=== PATIENT | male | born 1980 | race Caucasian/White ===

== ENCOUNTER 2025-01-24 12:57 | Emergency (ER) | payer MEDICAID, SELFPAY ==
[2025-01-24] VITALS (11 sets, daily range): BP systolic 155–210; BP diastolic 96–106; PULSE 90–146; TEMP 36.8; O2SAT 98–100; BMI 23.0
--- NOTE | 2025-01-24 13:14 | ECG_ITS ---
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 Measurements Intervals Wilbur Rate: 142 P: 210 WV: 160 QRS: 2 QRSD: 112 T: 57 QT: 340 QTc: 422 Interpretive Statements Sinus tachycardia 2440 Incomplete right bundle branch block Borderline ECG No previous ECG available for comparison Electronically Signed On 01-24-2025 19:26:31 EDT by SALVADOR GRACIA M.D.
--- NOTE | 2025-01-24 13:15 | ED.GENADUL1 ---
HPI HPI - General Adult General Chief complaint: Chest Pain Stated complaint: CHEST PAIN Time Seen by Provider: 01/24/25 13:10 Source: patient Mode of arrival: walk-in Limitations: no limitations History of Present Illness HPI narrative: 44-year-old male presents to the emergency department for chest pain. It started in his throat an hour before coming in to the emergency department while he was smoking a cigarette, and states it lasted for about 10 seconds. It spread down the middle part of his chest and he is worried he is having a heart attack. He has no known medical history at all. He feels like his heart was racing. No history of trauma or fever or unusual activity. No back pain or vomiting. Related Data Home Medications ?Medication ?Instructions ?Recorded ?Confirmed No Known Home Medications 01/24/25 01/24/25 Allergies Allergy/AdvReac Type Severity Reaction Status Date / Time No Known Drug Allergies Allergy Verified 01/24/25 13:06 Opioid HPI Opioid Management Most Recent Opioid Data: Last Pain Scale 5 01/24/25 13:26 01/24/25 Review of Systems ROS Narrative A ten point review of systems is negative except as noted above. [facility] Medical History (Updated 01/24/25 @ 14:58 by Joseph Gallegos MD) No pertinent past medical history ?Z78.9 - Other specified health status (ICD-10) Surgical History (Updated 01/24/25 @ 13:21 by Chris Smith) No pertinent past surgical history ?Z78.9 - Other specified health status (ICD-10) Social History Little interest or pleasure in doing things: not at all Feeling down, depressed, or hopeless: not at all Exam Narrative Exam Narrative: Nurses note and vital signs reviewed and patient is not hypoxic. General: The patient appears in no acute respiratory distress. He appears anxious Skin: Warm, dry, no pallor noted. There is no rash noted. Head: Normocephalic, atraumatic Eye: Normal conjunctiva, no drainage Ears, Nose, Mouth, and Throat: oral mucosa is moist. Nares patent. Cardiovascular: Regular Rate and Rhythm, tachycardic Respiratory: Patient is in no distress, no accessory muscle use, lungs are clear to auscultation, no wheezing, rales or rhonchi; breath sounds equal Back: non-tender GI: Soft and nontender Musculoskeletal: The patient has no evidence of calf tenderness, no pitting edema, symmetrical pulses noted bilaterally Neurological: A&O x4, normal speech Psychiatric: Cooperative, anxious Constitutional Vital Signs, click to edit/add: Last Vital Signs Temp 98.2 F 01/24/25 13:06 Pulse 90 01/24/25 14:30 Resp 15 01/24/25 14:30 BP 167/97 H 01/24/25 14:01 Pulse Ox 99 01/24/25 14:00 O2 Del Method Room Air 01/24/25 13:20 Course Vital Signs Vital signs: Vital Signs Pulse Oximetry 98 01/24/25 13:02 Temperature 98.2 F 01/24/25 13:06 Pulse Rate 90 01/24/25 14:30 Respiratory Rate 15 01/24/25 14:30 Blood Pressure 167/97 H 01/24/25 14:01 Pulse Oximetry 99 01/24/25 14:00 Oxygen Delivery Method Room Air 01/24/25 13:20 Medical Decision Making MDM Narrative Medical decision making narrative: His workup here is negative including 2 sets of troponin and a D-dimer. The rest of his workup as well is negative and he has had no recurrence of his symptoms. The patient tells me it lasted for about 10 seconds. He is able to be discharged home and will follow-up with his doctor if symptoms recur. Treatment diagnosis and follow-up were discussed with the patient. Differential Diagnosis Differential Diagnosis: Myocardial infarction, pneumothorax, pneumonia, PE Lab Data Lab results reviewed: Yes I reviewed the patient's lab results Labs: Lab Results 01/24/25 01/24/25 Range/Units 13:18 14:23 WBC 10.4 (4.0-11.0) 10^3/uL RBC 4.74 (4.70-6.10) 10^6/uL Hgb 15.3 (14.0-18.0) g/dL Hct 42.8 (42.0-54.0) % MCV 90.3 (80.0-94.0) fL MCH 32.3 (25.9-34.0) pg MCHC 35.7 H (29.9-35.2) g/dL RDW 13.0 (11.0-15.0) % Plt Count 256 (150-450) 10^3/uL MPV 9.5 (9.5-13.5) fL Neut % (Auto) 59.0 (43.0-75.0) % Lymph % (Auto) 30.7 (20.5-60.0) % [place] % (Auto) 8.7 (1.7-12.0) % Eos % (Auto) 0.8 L (0.9-7.0) % Baso % (Auto) 0.5 (0.2-2.0) % Neut # (Auto) 6.1 (1.4-6.5) 10^3/uL Lymph # (Auto) 3.2 (1.2-3.8) 10^3/uL [place] # (Auto) 0.9 H (0.3-0.8) 10^3/uL Eos # (Auto) 0.1 (0.0-0.7) 10^3/uL Baso # (Auto) 0.1 (0.0-0.1) 10^3/uL Abs Immat Gran (auto) 0.03 (0.00-0.03) 10^3/uL Imm/Tot Granulo (auto) 0.3 (0.0-0.5) % D-Dimer 0.27 (<=0.59) mg/L FEU Sodium 138 (136-145) mmol/L Potassium 3.7 (3.5-5.1) mmol/L Chloride 100 (98-107) mmol/L Carbon Dioxide 28.5 (21.0-32.0) mmol/L Anion Gap 13.2 BUN 26.0 H (7.0-18.0) mg/dL Creatinine 1.03 (0.70-1.30) mg/dL Est GFR ( Amer) >60 (>=60 mL/min/1.73m^2) Est GFR (Non-Af Amer) >60 (>=60 mL/min/1.73m^2) BUN/Creatinine Ratio 25.2 Glucose 210 H (74-106) mg/dL Calcium 8.7 (8.5-10.1) mg/dL Troponin I High Sens 21.6 22.2 (4.0-76.1) pg/mL Imaging Data Chest x-ray: Radiologist's impression: No consolidation, no pulmonary edema, pleural effusion or pneumothorax ECG Data Attestation: I personally reviewed and interpreted this ECG as follows: (EKG on my interpretation shows sinus tachycardia with a rate of 142) Discharge Plan Discharge Chief Complaint: Chest Pain Clinical Impression: Chest pain Patient Disposition: Home, Self-Care Time of Disposition Decision: 14:58 Condition: Good Mode of Transportation: Private Vehicle Prescriptions / Home Meds: No Action No Known Home Medications Print Language: Arabic Instructions: Chest Pain (ED) Referrals: Physician,Non-Staff, MD [Primary Care Provider] - 1 week
[2025-01-24 13:36] LABS: Basophils Absolute Auto 0.1 10^3/uL (0.0-0.1); Basophils Percent Auto 0.5 % (0.2-2.0); Eosinophils Absolute Auto 0.1 10^3/uL (0.0-0.7); Eosinophils Percent Auto 0.8 % (0.9-7.0); Hematocrit 42.8 % (42.0-54.0); Hemoglobin 15.3 g/dL (14.0-18.0); Immature Granulocytes Abs Auto 0.03 10^3/uL (0.00-0.03); Immature Granulocytes Pct Auto 0.3 % (0.0-0.5); Lymphocytes Absolute Auto 3.2 10^3/uL (1.2-3.8); Lymphocytes Percent Auto 30.7 % (20.5-60.0); Mean Corpuscular HGB Conc 35.7 g/dL (29.9-35.2); Mean Corpuscular Hemoglobin 32.3 pg (25.9-34.0); Mean Corpuscular Volume 90.3 fL (80.0-94.0); Mean Platelet Volume 9.5 fL (9.5-13.5); Monocytes Absolute Auto 0.9 10^3/uL (0.3-0.8); Monocytes Percent Auto 8.7 % (1.7-12.0); Neutrophils Absolute Auto 6.1 10^3/uL (1.4-6.5); Platelet Count 256 10^3/uL (150-450); Red Blood Count 4.74 10^6/uL (4.70-6.10); White Blood Count 10.4 10^3/uL (4.0-11.0)
[2025-01-24 13:44] LABS: D Dimer 0.27 mg/L FEU (<=0.59)
[2025-01-24 13:49] LABS: Anion Gap 13.2; BUN Creatinine Ratio 25.2; Calcium 8.7 mg/dL (8.5-10.1); Carbon Dioxide 28.5 mmol/L (21.0-32.0); Chloride 100 mmol/L (98-107); Estimated GFR (African America >60 (>=60 mL/min/1.73m^2); Estimated GFR (Non-African Ame >60 (>=60 mL/min/1.73m^2); Glucose 210 mg/dL (74-106); Potassium 3.7 mmol/L (3.5-5.1); Sodium 138 mmol/L (136-145); Troponin I High Sensitivity 21.6 pg/mL (4.0-76.1)
[2025-01-24 14:48] LABS: Troponin I High Sensitivity 22.2 pg/mL (4.0-76.1)
== END 2025-01-24 15:11 | disposition home or self-care (01) ==
PROVIDERS: Emergency Provider Emergency Medicine
DX: R07.9 Chest pain, unspecified (principal); F17.210 Nicotine dependence, cigarettes, uncomplicated
CPT/HCPCS: 36415; 71045; 80048; 80307; 81001; 84484; 85025; 85378; 93005; 99285

== ENCOUNTER 2025-06-19 15:06 | Outpatient (OUT) | payer MEDICAID, SELFPAY ==
--- OUTSIDE RECORDS SUMMARY | 2025-06-19 15:13 | XMS_ITS | Encounter Summary ---
Author Organization [facility] Address [id number] [address] [place] [address] Care Team Providers Care Wardrobe Consultant Name Role Phone No Pcp, No Pcp Primary Care Provider Unavailabl e Encounter Details Date Type Department Care Team (Latest Contact Info) Description 06/19/2025 Travel Social History Tobacco Use Types Packs/Day Years Used Date Smoking Tobacco: Never Assessed Childcare Answer Date Recorded Childcare Unknown 04/10/2019 Employment Answer Date Recorded Employment Unknown 04/10/2019 Sex and Gender Information Value Date Recorded Sex Assigned at Not on file Legal Sex Male 11:42 AM EDT Gender Identity Not on file Sexual Orientation Not on file documented as of this encounter Plan of Treatment Not on file documented as of this encounter Visit Diagnoses Not on filedocumented in this encounter Care Teams Wardrobe Consultant Relationship Specialty Start Date End Date No Pcp, [place] [address] PCP - General Family Medicine 06/19/25 documented as of this encounter
--- OUTSIDE RECORDS SUMMARY | 2025-06-19 15:13 | XMS_ITS | Clinical Summary ---
Author Organization [facility] Address [id number] [address] [place] [address] Care Team Providers Care Architectural Inspector Name Role Phone No Pcp, No Pcp Primary Care Provider Unavailabl e Encounters Date Type Department Care Team Description 06/19/2025 Travel from Last 3 Months Social History Tobacco Use Types Packs/Day Years Used Date Smoking Tobacco: Never Assessed Childcare Answer Date Recorded Childcare Unknown 04/10/2019 Employment Answer Date Recorded Employment Unknown 04/10/2019 Sex and Gender Information Value Date Recorded Sex Assigned at Not on file Legal Sex Male 11:42 AM EDT Gender Identity Not on file Sexual Orientation Not on file Plan of Treatment Not on file Medical Devices Not on file Insurance MEDICAID Care Teams Architectural Inspector Relationship Specialty Start Date End Date No Pcp, [place] [address] PCP - General Family Medicine 06/19/25
--- OUTSIDE RECORDS SUMMARY | 2025-06-19 15:13 | XMS_ITS | Clinical Summary ---
Author Organization [facility] Address [address] [place] [address] Care Team Providers Care Mixer Operator Raw Salt Name Role Phone Unavailable Primary Care Provider Unavailabl e Social History Tobacco Use Types Packs/Day Years Used Date Smoking Tobacco: Never Assessed Sex and Gender Information Value Date Recorded Sex Assigned at Not on file Legal Sex Male 7:39 PM EDT Gender Identity Not on file Sexual Orientation Not on file Last Filed Vital Signs Vital Sign Reading Time Taken Comments Blood Pressure 134/90 04/23/2019 12:00 PM EDT Pulse - - Temperature - - Respiratory Rate - - Oxygen Saturation - - Inhaled Oxygen Concentration - - Weight 86.6 kg (191 lb) 04/23/2019 12:00 PM EDT Height 184.2 cm (6' 0.5 ) 04/23/2019 12:00 PM ED T Body Mass Index 25.55 04/23/2019 12:00 PM EDT Plan of Treatment Not on file
[2025-06-19 15:32] LABS: Hematocrit 45.0 % (42.0-54.0); Hemoglobin 16.1 g/dL (14.0-18.0); Immature Granulocytes Abs Auto 0.02 10^3/uL (0.00-0.03); Immature Granulocytes Pct Auto 0.2 % (0.0-0.5); Lymphocytes Absolute Auto 2.2 10^3/uL (1.2-3.8); Mean Corpuscular HGB Conc 35.8 g/dL (29.9-35.2); Mean Corpuscular Hemoglobin 31.8 pg (25.9-34.0); Mean Corpuscular Volume 88.8 fL (80.0-94.0); Platelet Count 253 10^3/uL (150-450); Red Blood Count 5.07 10^6/uL (4.70-6.10); White Blood Count 10.8 10^3/uL (4.0-11.0)
[2025-06-19 15:48] LABS: Alanine Aminotransferase 25 U/L (16-63); Albumin Globulin Ratio 1.4; Albumin Level 4.7 g/dL (3.4-5.0); Alkaline Phosphatase 59 U/L (46-116); Anion Gap 11.0; Aspartate Amino Transferase 16 U/L (15-37); Blood Urea Nitrogen 24.0 mg/dL (7.0-18.0); Calcium 9.2 mg/dL (8.5-10.1); Carbon Dioxide 30.0 mmol/L (21.0-32.0); Chloride 102 mmol/L (98-107); Estimated GFR (African America >60 (>=60 mL/min/1.73m^2); Estimated GFR (Non-African Ame >60 (>=60 mL/min/1.73m^2); Globulin 3.3 g/dL; Glucose 101 mg/dL (74-106); Potassium 4.0 mmol/L (3.5-5.1); Sodium 139 mmol/L (136-145); Total Protein 8.0 g/dL (6.4-8.2)
[2025-06-19 15:54] LABS: Thyroid Stimulating Hormone 0.705 uIU/mL (0.358-3.740)
--- OUTSIDE RECORDS SUMMARY | 2025-06-19 16:46 | XMS_ITS | CCD ---
Author Organization [place] [employer] [facility] [employer] [facility] Results Test Name Value Interpretation Reference Range Facil ity XR scapula LT*on 04-16-2021 XR scapula LT* [facility] [place] [address] [place] [address] XRay Report Signed Patient: Fabian Quiñones MR#: [id number] : 1980 Acct:[id number] Age/Sex: 40 / M ADM Date: 04/16/21 Loc: XDUC Room: Type: [facility] Attending Dr: Chela CARPENTER Ordering Provider: CHELA NAIR Date of Service: 04/16/21 XR/XR ribs LT min 3V w CXR1V*: Rib pain on left side ([id number]) XR/XR scapula LT*: Rib pain on left side Copies to: CHELA NAIR CLINICAL DATA: Left upper rib and scapular pain for the past few days after patient fell 6 feet from a tree landing on a log. PA CHEST WITH LEFT RIBS: COMPARISON: None The chest film shows no infiltrate, effusion or pneumothorax. The cardiac, hilar and mediastinal silhouettes are within normal limits. No vascular congestion is seen. AP and both oblique views of the left ribs show no displaced fractures or bony destruction. XR/XR ribs LT min 3V w CXR1V* IMPRESSION: NO ACUTE FINDINGS. LEFT SCAPULA - 2 views COMPARISON: None AP and Y views were obtained. No acute fractures or dislocation are noted. No soft tissue abnormalities are seen. IMPRESSION: NO ACUTE BONY INJURY. Impression dictated by: Shannan Hoffman M.D.04/16/2021 1:33 PM Dictation Location: [place] [address] Transcribed By: NIRALI 04/16/21 1333 Dictated By: Shannan Hoffman MD 04/16/21 1327 Signed By: 04/16/21 1333 Normal [facility] Summary Purpose Family History No Family History Records Found Advance Directives No Advanced Directives Records Found Additional Source Comments (unrecognized sect ion and content) No Status Records Found INFORMATION SOURCE (unrecogn ized section and content) DATE CREATED AUTHOR 11/20/2021 [facility] FOR RECORDS PERTAINING TO PATIENTS WHO ARE OR HAVE BEEN ENROLLED IN A CHEMICAL DEPENDENCY/SUBSTANCEABUSE PROGRAM, SOME INFORMATION MAY BE OMITTED. This clinical summary was aggregated from multiple sources. Caution should be exercised in using it in the provision of clinical care. This summary normalizes information from multiple sources, and as a consequence, information in this document may materially change the coding, format and clinical context of patient data. In addition, data may be omitted in some cases. CLINICAL DECISIONS SHOULD BE BASED ON THE PRIMARY CLINICAL RECORDS. [facility] [employer] provides no warranty or guarantee of the accuracy or completeness of information in this document.
== END 2025-06-19 15:07 | disposition home or self-care (01) ==
DX: L20.9 Atopic dermatitis, unspecified (principal); A63.0 Anogenital (venereal) warts; F41.9 Anxiety disorder, unspecified
CPT/HCPCS: 36415; 80053; 82248; 84443; 85025